=== PATIENT | male | born 1985 | race Caucasian/White ===

== ENCOUNTER 2017-03-22 23:11 | Emergency (ER) | payer OTHER ==
[2017-03-23] MEDS ORDERED: KETOROLAC 60 MG/2 ML VIAL IM STA (00:17)
[2017-03-23] MEDS ORDERED: DEXAMETHASONE 10 MG/ML VIAL PO STA (00:17)
--- NOTE | 2017-03-23 00:40 | ED Physician Documentation ---
PD HPI BACK INJURY - Stated complaint Stated Complaint: BACK PAIN - History obtained from History obtained from: Patient, Family - History of Present Illness Location: Both, Lower Type of injury: Other (lifting injury) Where injury occurred: Other (gym) Timing - onset: Enter time (1400), Today Timing - duration: Hours Timing - details: Abrupt onset, Still present Quality: Pain, Spasm, Sharp Improved by: Rest, Immobilization Worsened by: Moving, Palpating Associated symptoms: No: Fever, Weakness, Numbness, Incontinent of urine, Unable to urinate, Hematuria, Incontinent of stool Contributing factors: No: Anticoagulated Similar symptoms before: Has not had sx before Recently seen: Not recently seen - Additional information Additional information: 31-year-old active [employer] [place] male was doing a lift in the gym today with about 180 pounds when he felt a pop in his lower back at the lumbosacral junction and he developed acute pain there. He had to stop his workout and he has had pain since. He denies any saddle anesthesia or incontinence or difficulty with urine or bladder. He did lay on a heating pack for comfort and when he got off of the heating pack his pain was worse.He has not injured his back previously. Review of Systems Constitutional: denies: Fever Eyes: denies: Decreased vision Ears: denies: Ear pain Nose: denies: Congestion Throat: denies: Sore throat Cardiac: denies: Chest pain / pressure Respiratory: denies: Dyspnea, Cough GI: denies: Abdominal Pain, Nausea, Vomiting : denies: Dysuria, Frequency, Incontinent Skin: denies: Rash Musculoskeletal: reports: Back pain. denies: Neck pain Neurologic: denies: Generalized weakness, Focal weakness, Numbness PD PAST MEDICAL HISTORY - Past Medical History Past Medical History: No - Past Surgical History Past Surgical History: Yes General: Appendectomy - Present Medications Home Medications: Ambulatory Orders Medication Instructions Recorded Confirmed Cyclobenzaprine [Flexeril] 10 mg PO TID PRN #20 tablet 03/23/17 HYDROcod/ACETAM 5/325 [[place] 5/325] 1 - 2 ea PO Q6H PRN #15 tablet 03/23/17 - Allergies Allergies/Adverse Reactions: Allergies Allergy/AdvReac Type Severity Reaction Status Date / Time No Known Drug Allergies Allergy Verified 03/22/17 23:19 - Social History Does the pt smoke?: No Smoking Status: Never smoker Does the pt drink ETOH?: No Does the pt have substance abuse?: No - Immunizations Immunizations are current?: Yes - POLST Patient has POLST: No PD ED PE NORMAL - Vitals Vital signs reviewed: Yes (hypertensive) - General General: Alert and oriented X 3, No acute distress, Well developed/nourished - HEENT HEENT: Atraumatic, PERRL, EOMI - Respiratory Respiratory: No respiratory distress - Back Back: No CVA TTP, No spinal TTP, Other (There is point tenderness to the lumbosacral junction and laterally there is no tenderness to the paraspinous muscles above this area and the pain does radiate bilaterally into the sciatic notch.) - Derm Derm: Normal color, Warm and dry, No rash - Extremities Extremities: No deformity, No edema - Neuro Neuro: Alert and oriented X 3, cabin crew 2-12 intact, No motor deficit, No sensory deficit, Normal speech Eye Opening: Spontaneous Motor: Obeys Commands Verbal: Oriented GCS Score: 15 - Psych Psych: Normal mood, Normal affect Results - Vitals Vitals: Vital Signs - 24 hr 03/22/17 23:19 Temperature 36.0 C L Heart Rate 52 L Respiratory 18 Rate Blood Pressure 142/89 H O2 Saturation 98 Oxygen O2 Source Room air PD MEDICAL DECISION MAKING - ED course Complexity details: re-evaluated patient, considered differential, d/w patient, d/w family ED course: 31-year-old male with acute lifting injury has acute lower back strain and here in the emergency form and he is administered dexamethasone and Toradol I have asked the patient to stop using heating pack and use ice and stretch and we will provide a limited amount of narcotic and muscle relaxant. Departure - Departure Disposition: 01 Home, Self Care Clinical Impression: Acute lumbar myofascial strain Qualifiers: Encounter type: initial encounter Qualified Code(s): S39.012A - Strain of muscle, fascia and tendon of lower back, initial encounter Condition: Stable Instructions: ED Sprain Strain Lumbar Follow-Up: JULIANNE Varela [Provider Group] Prescriptions: Cyclobenzaprine [Flexeril] 10 mg PO TID PRN #20 tablet PRN Reason: Spasms HYDROcod/ACETAM 5/325 [[place] 5/325] 1 - 2 ea PO Q6H PRN #15 tablet PRN Reason: Pain
[2017-03-23] MEDS ORDERED: HYDROcod/ACET 5/325 Prepack 6 PO STA (00:43)
[2017-03-23 01:01] VITALS: BP 112/56
== END 2017-03-23 01:01 | disposition home or self-care (01) ==
LOC: ED 23:11
DX: S39.012A Strain of muscle, fascia and tendon of lower back, initial encounter (principal); X50.0XXA Overexertion from strenuous movement or load, initial encounter; Y93.B3 Activity, free weights; Y92.89 Other specified places as the place of occurrence of the external cause
CPT/HCPCS: 96372; 99283

== ENCOUNTER 2017-05-29 09:48 | Outpatient (CLI) | payer OTHER ==
[~2017-05-29 09:48] MED LIST: GADOBUTROL 15 MMOL/15 ML VIAL ONE
[2017-05-29] MEDS ORDERED: GADOBUTROL 15 MMOL/15 ML VIAL IVP ONE (10:48)
--- NOTE | 2017-05-29 12:18 | MRI Report ---
EXAM: MRI BRAIN AND INTERNAL AUDITORY CANAL (IAC),WITHOUT AND WITH CONTRAST. EXAM DATE: 05/29/2017 11:09 AM. CLINICAL HISTORY: ASYMMETRICAL SENSORINEURAL HEARING LOSS, TINNITUS. Left-sided. COMPARISON: None. TECHNIQUE: Multiplanar, multisequence T1-weighted and fluid-sensitive MRI sequences of the brain and IACs were performed. Other: None. IV Contrast: Without and with. 12 mL Gadavist FINDINGS: Brain Volume: Normal for age. Parenchyma/Dura: No acute hemorrhage, mass, or acute infarct.No white matter lesions identified. No a bnormal enhancement. Internal Auditory Canals (IACs): Loss of normal T2 hyperintense signal within the left lateral semici rcular canal (series 801 image 45). No cranial nerve lesion or inflammatory process identified. The c erebellopontine angles bilaterally, the internal auditory canals bilaterally, the cochleas bilaterall y, and the remaining vestibular apparatuses bilaterally are unremarkable. No associated abnormal enha ncement. Ventricles/Cisterns: No hydrocephalus. No abnormal extra-axial fluid collection or hemorrhage. Orbits: Symmetric and unremarkable. Sella Turc[place]: The pituitary gland, cavernous sinuses, suprasellar cistern and optic chiasm are unrem arkable. Vasculature: Normal signal flow void is seen in the major arterial structures at the skull base. The dural sinuses are patent and enhance normally. Sinuses: No acute sinus disease. Bones: No focal pathologic appearing marrow signal changes. Other: None. IMPRESSION: 1. Loss of normal T2 hyperintense signal within the left lateral semicircular canal (series 801 image 45). This is a nonspecific finding but can be seen for example with labyrinthine ossificans. The cer ebellopontine angles bilaterally, the internal auditory canals bilaterally, the cochleas bilaterally, and the remaining vestibular apparatuses bilaterally are unremarkable. No associated abnormal enhanc ement. 2. Unremarkable MRI examination of the brain parenchyma. No MRI evidence of acute intracranial abnorm ality. Specifically, no evidence of acute or subacute infarct, acute intracranial hemorrhage, mass, m idline shift, or hydrocephalus. No abnormal enhancement. No white matter lesions. [facility] Referring Provider Line: [phone] SITE ID: [id number]
== END 2017-05-29 09:49 | disposition home or self-care (01) ==
LOC: DI 09:48
PROVIDERS: ATTEND Otolaryngology
DX: H93.12 Tinnitus, left ear (principal); H90.5 Unspecified sensorineural hearing loss
CPT/HCPCS: 70553; A9585

== ENCOUNTER 2018-05-26 12:12 | Emergency (ER) | payer OTHER ==
[2018-05-26 13:03] VITALS: BP 134/71
[2018-05-26 13:36] LABS: BASOPHILS % (AUTO) 0.2 %; EOSINOPHILS # (AUTO) 0.1 10^3/uL (0.0-0.7); EOSINOPHILS % (AUTO) 0.8 %; HGB - HEMOGLOBIN 15.1 g/dL (14.0-18.0); LYMPHOCYTES # (AUTO) 0.7 10^3/uL (1.5-3.5); LYMPHOCYTES % (AUTO) 5.5 %; MEAN CORPUSCULAR HEMOGLOBIN 29.3 pg (27.0-31.0); MEAN CORPUSCULAR HGB CONC 34.3 g/dL (32.0-36.0); MEAN CORPUSCULAR VOLUME 85.6 fL (80.0-94.0); MEAN PLATELET VOLUME 7.9 fL (7.4-11.4); MONOCYTES # (AUTO) 0.8 10^3/uL (0.0-1.0); MONOCYTES % (AUTO) 5.7 %; NEUTROPHILS # (AUTO) 11.6 10^3/uL (1.5-6.6); NEUTROPHILS % (AUTO) 87.8 %; PLT - PLATELET COUNT 168 10^3/uL (130-450); RED BLOOD COUNT 5.16 10^6/uL (4.70-6.10); RED CELL DISTRIBUTION WIDTH 12.9 % (12.0-15.0); WHITE BLOOD COUNT 13.2 x10^3/uL (4.8-10.8)
[2018-05-26 13:48] LABS: ALBUMIN 4.8 g/dL (3.2-5.5); ALBUMIN/GLOBULIN RATIO 1.5 (1.0-2.2); BILIRUBIN,TOTAL 1.4 mg/dL (0.2-1.0); CALCIUM 9.2 mg/dL (8.5-10.3); CREATININE 0.9 mg/dL (0.6-1.2); TOTAL PROTEIN 7.9 g/dL (6.7-8.2)
[2018-05-26] MEDS ORDERED: ONDANSETRON ODT 4 MG TABLET TL STA (14:19)
[2018-05-26] MEDS ORDERED: IBUPROFEN 600 MG TABLET PO STA (14:19)
[2018-05-26 14:24] LABS: BILIRUBIN,URINE NEGATIVE (NEGATIVE); GLUCOSE, URINE (UA) NEGATIVE (NEGATIVE); KETONES,URINE (UA) NEGATIVE (NEGATIVE); LEUKOCYTE ESTERASE, URINE NEGATIVE (NEGATIVE); NITRITE,URINE NEGATIVE (NEGATIVE); OCCULT BLOOD,URINE NEGATIVE (NEGATIVE); PH,URINE 5.5 PH (5.0-7.5); PROTEIN,URINE NEGATIVE (NEGATIVE); UROBILINOGEN,URINE 0.2 (NORMAL) E.U./dL (NORMAL)
[2018-05-26 14:27] LABS: CLARITY,URINE CLOUDY (CLEAR)
[2018-05-26 14:31] LABS: AMORPHOUS SEDIMENT,UR Marked /LPF; BACTERIA,URINE None Seen /HPF (None Seen); RBC,URINE None Seen /HPF (0-5); SQUAMOUS EPITHELIAL CELL,UR RARE Squamous (<= Few)
--- NOTE | 2018-05-26 14:47 | ED Physician Documentation ---
PD HPI NVD - Stated complaint Stated Complaint: DIARRHEA/VOMITING - Chief complaint Chief Complaint: Abd Pain - Additonal information Additional information: 32-year-old male presents the emergency department with nausea, vomiting, diarrhea with abdominal cramping which started roughly at 430 this morning. The patient denies any recent antibiotic usage, recent travel or camping or drinking of river water. The patient reports generalized abdominal pain. No focal area abdominal pain. No fevers or blood in the vomit or stools. Symptoms are described as moderate. The patient is able to tolerate liquids. No other associated symptoms. Review of Systems Constitutional: reports: Fatigue. denies: Fever, Chills Eyes: denies: Discharge Ears: denies: Ear pain Nose: denies: Congestion Throat: denies: Sore throat Cardiac: denies: Chest pain / pressure Respiratory: denies: Cough GI: reports: Abdominal Pain, Nausea, Vomiting, Diarrhea. denies: Bloody / black stool : denies: Hematuria Skin: denies: Rash Musculoskeletal: denies: Back pain Neurologic: denies: Generalized weakness PD PAST MEDICAL HISTORY - Past Surgical History Past Surgical History: Yes General: Appendectomy - Present Medications Home Medications: Ambulatory Orders Medication Instructions Recorded Confirmed Ondansetron HCl [Zofran] 4 mg PO Q6HR PRN #30 tablet 05/26/18 - Allergies Allergies/Adverse Reactions: Allergies Allergy/AdvReac Type Severity Reaction Status Date / Time No Known Drug Allergies Allergy Verified 05/26/18 13:03 - Social History Does the pt smoke?: No Smoking Status: Never smoker Does the pt drink ETOH?: No Does the pt have substance abuse?: No - Immunizations Immunizations are current?: Yes - POLST Patient has POLST: No PD ED PE NORMAL - General General: Alert and oriented X 3, No acute distress - HEENT HEENT: Atraumatic, PERRL, EOMI, Ears normal - Cardiac Cardiac: RRR (Regular tachycardia most likely secondary to mild dehydration), Strong equal pulses - Respiratory Respiratory: No respiratory distress - Abdomen Abdomen: Soft, Non tender, Non distended - Derm Derm: Normal color - Extremities Extremities: No deformity - Neuro Neuro: Alert and oriented X 3 - Psych Psych: Normal affect Results - Vitals Vitals: Vital Signs - 24 hr 05/26/18 13:00 Temperature 36.9 C Heart Rate 109 H Respiratory 16 Rate Blood Pressure 134/71 H O2 Saturation 97 Oxygen O2 Source Room air - Labs Labs: Laboratory Tests 05/26/18 05/26/18 05/26/18 13:27 13:31 13:31 WBC 13.2 H RBC 5.16 Hgb 15.1 Hct 44.2 MCV 85.6 MCH 29.3 MCHC 34.3 RDW 12.9 Plt Count 168 MPV 7.9 Neut # (Auto) 11.6 H Lymph # (Auto) 0.7 L [place] # (Auto) 0.8 Eos # (Auto) 0.1 Baso # (Auto) 0.0 Absolute Nucleated RBC 0.00 Nucleated RBC % 0.0 Sodium 135 Potassium 4.1 Chloride 101 Carbon Dioxide 26 Anion Gap 8.0 BUN 13 Creatinine 0.9 Estimated GFR (MDRD) 99 Glucose 122 H Calcium 9.2 Total Bilirubin 1.4 H AST 66 H ALT 81 H Alkaline Phosphatase 57 Total Protein 7.9 Albumin 4.8 Globulin 3.1 Albumin/Globulin Ratio 1.5 Lipase 24 Urine Color YELLOW Urine Clarity CLOUDY Urine pH 5.5 Ur Specific [place] >=1.030 H Urine Protein NEGATIVE Urine Glucose (UA) NEGATIVE Urine Ketones NEGATIVE Urine Occult Blood NEGATIVE Urine Nitrite NEGATIVE Urine Bilirubin NEGATIVE Urine Urobilinogen 0.2 (NORMAL) Ur Leukocyte Esterase NEGATIVE Urine RBC None Seen Urine WBC 0-3 Ur Squamous Epith Cells RARE Squamous Amorphous Sediment Marked Urine Bacteria None Seen Ur Microscopic Review INDICATED Urine Culture Comments NOT INDICATED PD MEDICAL DECISION MAKING - ED course ED course: The patient's symptoms appear to be of a viral etiology, the patient has already had an appendectomy and on physical exam has no tenderness his abdomen to suggest an acute surgical process. Presently the patient appears appropriate for discharge with outpatient management. I discussed warning signs for a surgical etiology. I recommended returning to the emergency department for any worsening or any concerns Departure - Departure Disposition: 01 Home, Self Care Clinical Impression: Vomiting and diarrhea Abdominal pain Qualifiers: Abdominal location: unspecified location Qualified Code(s): R10.9 - Unspecified abdominal pain Condition: Good Instructions: ED Diarrhea Viral, Abdominal Pain, ED Diet Vomiting Diarrhea Follow-Up: JULIANNE Varela [Provider Group] - Within 1 week Prescriptions: Ondansetron HCl [Zofran] 4 mg PO Q6HR PRN #30 tablet PRN Reason: Nausea / Vomiting Comments: Please return to the emergency department for any worsening or any concerns
== END 2018-05-26 15:05 | disposition home or self-care (01) ==
LOC: ED 12:12
DX: R10.84 Generalized abdominal pain (principal); R11.2 Nausea with vomiting, unspecified; R19.7 Diarrhea, unspecified; E86.0 Dehydration
CPT/HCPCS: 36415; 80053; 81001; 83690; 85025; 99283; A9270; Q0162; 81003; 87086

== ENCOUNTER 2018-12-17 21:46 | Emergency (ER) | payer OTHER ==
[2018-12-17 21:53] VITALS: BP 155/78
--- NOTE | 2018-12-17 21:57 | ED Physician Documentation ---
PD HPI UPPER EXT INJURY - History obtained from History obtained from: Patient - History of Present Illness Location: Right (He been having some pain of the right elbow without specific injury but he been lifting weights a lot. He rested for a week but then it got worse tonight again after playing volleyball.) <Florentin Uriostegui - Last Filed: 12/17/18 22:03> <Alicia Kennedy - Last Filed: 12/18/18 03:54> - Stated complaint Stated Complaint: RIGHT ARM PX - Chief complaint Chief Complaint: Ext Problem Review of Systems Constitutional: reports: Reviewed and negative Cardiac: reports: Reviewed and negative Respiratory: reports: Reviewed and negative <Florentin Uriostegui - Last Filed: 12/17/18 22:03> PD PAST MEDICAL HISTORY <Florentin Uriostegui - Last Filed: 12/17/18 22:03> - Past Surgical History Past Surgical History: Yes General: Appendectomy - Social History Does the pt smoke?: No Smoking Status: Never smoker Does the pt drink ETOH?: No Does the pt have substance abuse?: No - Immunizations Immunizations are current?: Yes - POLST Patient has POLST: No <Alicia Kennedy - Last Filed: 12/18/18 03:54> - Present Medications Home Medications: Ambulatory Orders Medication Instructions Recorded Confirmed No Known Home Medications 12/17/18 12/17/18 - Allergies Allergies/Adverse Reactions: Allergies Allergy/AdvReac Type Severity Reaction Status Date / Time No Known Drug Allergies Allergy Verified 12/17/18 21:53 PD ED PE NORMAL - Vitals Vital signs reviewed: Yes - General General: Alert and oriented X 3, No acute distress - Extremities Extremities: Other (Focally tender over the medial epicondyle of the right elbow consistent with medial epicondylitis. No deformity or limited range of motion.) - Neuro Neuro: Alert and oriented X 3, Normal speech <Florentin Uriostegui - Last Filed: 12/17/18 22:03> - Vitals Vitals: Vital Signs - 24 hr 12/17/18 21:50 Temperature 36.7 C Heart Rate 70 Respiratory 16 Rate Blood Pressure 155/78 H O2 Saturation 98 Oxygen O2 Source Room air PD MEDICAL DECISION MAKING <Florentin Uriostegui - Last Filed: 12/17/18 22:03> <Alicia Kennedy - Last Filed: 12/18/18 03:54> - ED course ED course: This is a young man with medial epicondylitis of the right elbow. He was advised on relative rest and a tennis elbow band. (Florentin Uriostegui) My name got added to this chart but I did not see the patient and I am unable to remove my name. (Alicia Kennedy) Departure - Departure Record reviewed to determine appropriate education?: Yes <Florentin Uriostegui - Last Filed: 12/17/18 22:03> <Alicia Kennedy - Last Filed: 12/18/18 03:54> - Departure Disposition: 01 Home, Self Care Clinical Impression: Medial epicondylitis of right elbow Condition: Good Instructions: Medial Epicondylitis Comments: Ibuprofen as needed for pain, get the tennis elbow band tomorrow as discussedIbuprofen as needed for pain, get the tennis elbow band tomorrow as discussed and use it and rest the right arm relatively. Return for new worsening symptoms. [place] Discharge Date/Time: 12/17/18 22:11
== END 2018-12-17 22:11 | disposition home or self-care (01) ==
LOC: ED 21:46
DX: M77.01 Medial epicondylitis, right elbow (principal)
CPT/HCPCS: 99282